=== PATIENT | male | born 1970 | race Caucasian/White ===

== ENCOUNTER 2019-07-21 19:17 | Emergency (ER) | payer SELFPAY ==
[~2019-07-21] VITALS: Ht 182.9 cm; Wt 87.6 kg
--- NOTE | 2019-07-21 19:32 | PHYS DOC ---
Adult General Chief Complaint Chief Complaint: OTHER COMPLAINTS.. "I think I am infected with worms.. I see them in my stools.. I even think they are going out of my skin.... My girl friend has them too.. she.... Went to [facility] and they just thought she was crazy.. "." HPI HPI Patient is a 49 year old male who presents with above hx and complaints worm's in his stool in lesions on his skin. Patient has been exposed to individuals that have been overseas. No recent travel. Patient has done a course of scabies treatment. Patient advised his girlfriend also has worms. No hx. of immunosuppression. Review of Systems Review of Systems Constitutional: Denies fever or chills [] Eyes: Denies change in visual acuity, redness, or eye pain [] HENT: Denies nasal congestion or sore throat [] Respiratory: Denies cough or shortness of breath [] Cardiovascular: No additional information not addressed in HPI [] GI: Denies abdominal pain, nausea, vomiting, bloody stools or diarrhea []. Patient has complaints of worms in his stool : Denies dysuria or hematuria [] Musculoskeletal: Denies back pain or joint pain [] Integument: Denies rash . Complaints of skin lesions Neurologic: Denies headache, focal weakness or sensory changes [] Endocrine: Denies polyuria or polydipsia [] All other systems were reviewed and found to be within normal limits, except as documented in this note. Family History Family History Noncontributory Current Medications Current Medications See nursing for home meds Allergies Allergies No known drug allergies Physical Exam Physical Exam Constitutional: Well developed, well nourished, no acute distress, non-toxic appearance. [] HENT: Normocephalic, atraumatic, bilateral external ears normal, oropharynx moist, no oral exudates, nose normal. [] Eyes: PERRLA, EOMI, conjunctiva normal, no discharge. [] Neck: Normal range of motion, no tenderness, supple, no stridor. [] Cardiovascular:Heart rate regular rhythm, no murmur [] Lungs & Thorax: Bilateral breath sounds equal apex with scattered wheezes on auscultation [] Abdomen: Bowel sounds normal, soft, no tenderness, no masses, no pulsatile masses. [] Skin: Warm, dry, no erythema, no rash. [] Back: No tenderness, no CVA tenderness. [] Extremities: No tenderness, no cyanosis, no clubbing, ROM intact, no edema. [] Neurologic: Alert and oriented X 3, normal motor function, normal sensory function, no focal deficits noted. [] Psychologic: Affect anxious, judgement normal, mood normal. [] EKG EKG [] Radiology/Procedures Radiology/Procedures [] Course & Med Decision Making Course & Med Decision Making Pertinent Labs and Imaging studies reviewed. (See chart for details) Patient to supply a stool sample. Patient follow-up primary care. Patient take albendazole 400 mg daily for 3 days. Patient follow-up primary care. Followup stool evaluations. Impression: 1. Hx. of Worms in stool [] Dragon Disclaimer Dragon Disclaimer This electronic medical record was generated, in whole or in part, using a voice recognition dictation system. Departure Departure: Disposition: 01 HOME/RESIDENCE PRIOR TO ADM Condition: STABLE Referrals: PCP,NO (PCP) Scripts Albendazole (ALBENZA) 200 Mg Tablet 400 MG PO DAILY for worms for 3 Days, #6 TAB Prov: PATRICIA LOO MD 07/21/19 Hossein Disclaimer This chart was dictated in whole or in part using Voice Recognition software in a busy, high-work load, and often noisy Emergency Department environment. It may contain unintended and wholly unrecognized errors or omissions. Dragon Disclaimer This chart was dictated in whole or in part using Voice Recognition software in a busy, high-work load, and often noisy Emergency Department environment. It may contain unintended and wholly unrecognized errors or omissions. Dragon Disclaimer This chart was dictated in whole or in part using Voice Recognition software in a busy, high-work load, and often noisy Emergency Department environment. It may contain unintended and wholly unrecognized errors or omissions. PATRICIA LOO MD Jul 21, 2019 19:32
[2019-07-21 19:41] VITALS: BP 127/96
[2019-07-21] MEDS ORDERED: ALBE200T2 PO (20:27)
== END 2019-07-21 20:30 | disposition home or self-care (01) ==
LOC: ER 19:17
DX: B82.0 Intestinal helminthiasis, unspecified (principal); L98.8 Other specified disorders of the skin and subcutaneous tissue
CPT/HCPCS: 87045; 87177; 99284

== ENCOUNTER 2020-05-31 23:33 | Emergency (ER) | payer OTHER ==
[~2020-05-31] VITALS: Ht 185.4 cm; Wt 89.7 kg
[~2020-05-31 23:33] MED LIST: ALBE200T2 PO
--- NOTE | 2020-06-01 00:09 | RAD ---
Three-view right hand series history: Possible infection and foreign body AP lateral oblique views 3 views right wrist: There is marginal spurring of the distal radial ulnar joint. There is mild marginal spurring of the first carpal metacarpal joint. The visualized osseous structures appear grossly intact. IMPRESSION: No acute findings. 3 views right hand: There is mild marginal spurring of the distal interphalangeal joints and the interphalangeal joint of the thumb. There is no radiopaque foreign body seen. There is soft tissue swelling of the thumb. IMPRESSION: 1. Mild degenerative changes consistent with osteoarthrosis. 2. No acute bony abnormality or radiopaque foreign body. Electronically signed by: Justin Terry III, MD (06/01/2020 12:06 AM) ENOC
[2020-06-01] MEDS ORDERED: VANCOMYCIN 1 GM in IV NORMAL SALINE 250ML 250 ML IV ONE (00:15)
[2020-06-01] MEDS ORDERED: PIPERACILLIN/TAZOBACTAM 3.375 GM VIAL IV ONE ×2 (00:20→00:32)
[2020-06-01] MEDS ORDERED: IV NORMAL SALINE 50ML 50 ML ONE ×2 (00:20→00:32)
--- NOTE | 2020-06-01 00:25 | PHYS DOC ---
Past History Past Medical History: No Pertinent History Past Surgical History: No Surgical History Alcohol Use: Occasionally Drug Use: Marijuana Adult General Chief Complaint Chief Complaint: HAND PROBLEM HPI HPI Patient is a 50-year-old male who presents for right thumb abnormality. 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 Reports picking up large heavy object the other day and having splinters embedded into flexor portion of his right thumb. He has had ongoing pain and increased swelling and irritation since onset. Nothing known makes better, movement and palpation make worse. Pain described as sharp and focal with mild radiation into hyperthenar eminence. Patient denies any fever or COVID-19 contacts but admits ongoing pain causing nausea, increased swelling of the thumb, and pain with extension of thumb. His tetanus is not up-to-date. He has no recent antibiotic use. Patient reports trying to pull out several embedded splinters with knife at home over the past 24 hours. Review of Systems Review of Systems Fourteen body systems of review of systems have been reviewed. See HPI for pertinent positives and negative responses, other gaviria all other systems are negative, non-pertinent or non-contributory Current Medications Current Medications Current Medications Medications (Trade) Dose Ordered Sig/Devendra Start Time Stop Time Status Last Admin Dose Admin Morphine Sulfate (Morphine 4mg Syringe) 4 mg 1X ONCE 06/01/20 00:30 06/01/20 00:31 Piperacillin Sod/ Tazobactam Sod 3.375 gm/Sodium Chloride 50 ml @ 100 mls/hr 1X ONCE 06/01/20 00:30 06/01/20 00:59 Vancomycin HCl 1 gm/Sodium Chloride 250 ml @ 250 mls/hr 1X ONCE 06/01/20 00:15 06/01/20 01:14 UNV Allergies Allergies Allergies Coded Allergies Type Severity Reaction Last Updated Verified No Known Drug Allergies 07/21/19 No Physical Exam Physical Exam Constitutional: Well developed, well nourished, moderate distress from pain, non-toxic appearance. HENT: Normocephalic, atraumatic, bilateral external ears normal, oropharynx moist, no oral exudates, nose normal. Eyes: PERRLA, EOMI, conjunctiva normal, no discharge. Neck: Normal range of motion, no tenderness, supple, no stridor. Cardiovascular: Heart rate regular, sinus rhythm, no murmurs rubs or gallops Lungs & Thorax: Bilateral breath sounds clear to auscultation Abdomen: Bowel sounds normal, soft, no tenderness, no masses, no pulsatile masses. Nonsurgical abdomen, no peritoneal signs Skin: Warm, dry, no erythema, no rash. Back: No tenderness, no CVA tenderness. Extremities: No cyanosis, no clubbing. Medial radial and ulnar nerves intact in bilateral upper extremities, pulses 2+ in bilateral upper extremities, obvious abnormality to right thumb which is held in flexion, fusiform swelling present with tenderness along tendon sheath, right thumb with increased circumference versus contralateral side, patient has pain with passive movement of flexion and extension of right thumb, no obvious streaking up right upper extremity from inoculation site on ventral portion of thumb flexor sheath Neurologic: Alert and oriented X 3, grossly normal motor & sensory function, no focal deficits noted. Psychologic: Affect normal, judgement normal, anxious mood Current Patient Data Vital Signs Vital Signs Date Time Temp Pulse Resp B/P (MAP) Pulse Ox O2 Delivery O2 Flow Rate FiO2 06/01/20 00:30 97 Room Air EKG EKG [] Radiology/Procedures Radiology/Procedures PROCEDURE: WRIST 3V RIGHT Three-view right hand series history: Possible infection and foreign body AP lateral oblique views 3 views right wrist: There is marginal spurring of the distal radial ulnar joint. There is mild marginal spurring of the first carpal metacarpal joint. The visualized osseous structures appear grossly intact. IMPRESSION: No acute findings. 3 views right hand: There is mild marginal spurring of the distal interphalangeal joints and the interphalangeal joint of the thumb. There is no radiopaque foreign body seen. There is soft tissue swelling of the thumb. IMPRESSION: 1. Mild degenerative changes consistent with osteoarthrosis. 2. No acute bony abnormality or radiopaque foreign body. Electronically signed by: Justin Terry III, MD (06/01/2020 12:06 AM) UI-EURI Heart Score Risk Factors: Risk Factors: DM, Current or recent (<one month) smoker, HTN, HLP, family history of CAD, obesity. Risk Scores: Risk Factors: DM, Current or recent (<one month) smoker, HTN, HLP, family history of CAD, obesity. Course & Med Decision Making Course & Med Decision Making Airway patent, breathing unlabored, vitals grossly unremarkable Comprehensive history and physical examination performed and concerning for potential flexor tenosynovitis of right thumb given Kanavel signs Radiographs of right upper extremity negative for any radiopaque retained fore ign body I immediately called [facility] to discuss case with on-call hand surgeon, Dr. Jorgensen, who ultimately agreed for transport to [facility] ER for further evaluation to ultimately rule in/out flexor tenosynovitis of right thumb I discussed proposed plan of care with patient who is amenable to transfer for evaluation by specialist and higher acuity of care Prior to ER departure, IV access was obtained, pending CBC, CMP, CRP, ESR at this time. Patient received tetanus prior to departure, 4 mg IV morphine and 1 g vancomycin and 3.75 g Zosyn administered Patient adequately stabilized, all questions and concerns addressed prior to ER departure in stable condition Dragon Disclaimer Dragon Disclaimer This electronic medical record was generated, in whole or in part, using a voice recognition dictation system. Departure Departure: Impression: Primary Impression: Flexor tenosynovitis of thumb Disposition: 02 DC/TRF OTHER SHORT TERM HOS ([facility] ER) Admitting Physician: Other (Dr. Jorgensen) Condition: STABLE Referrals: PCP,NO (PCP) RANJITH DHILLON DO Jun 01, 2020 00:25
[2020-06-01] MEDS ORDERED: MORPHINE SULFATE 4 MG/ML DISP.SYRIN. IV ONE (00:30)
[2020-06-01] MEDS ORDERED: PIPERACILLIN/TAZOBACTAM 3.375 GM in IV NORMAL SALINE 50ML 50 ML IV ONE (00:30)
[2020-06-01] MEDS ORDERED: VANCOMYCIN PER PHARMACY MC PRN (00:30)
[2020-06-01 00:52] LABS: CALCIUM 8.5 mg/dL (8.5-10.1); GFR 79.4; POTASSIUM 3.7 mmol/L (3.5-5.1)
[2020-06-01 00:58] LABS: ALBUMIN 3.4 g/dL (3.4-5.0); ALBUMIN/GLOBULIN RATIO 0.9 (1.0-1.7); C REACTIVE PROTEIN 44.7 mg/L (0-3.3); TOTAL BILIRUBIN 0.2 mg/dL (0.2-1.0); TOTAL PROTEIN 7.1 g/dL (6.4-8.2)
[2020-06-01 01:10] LABS: BASO % 1 % (0-3); EOS # 0.1 x10^3/uL (0.0-0.7); EOS % 1 % (0-3); HEMOGLOBIN 13.6 g/dL (13.0-17.5); LYMPH # 1.2 x10^3/uL (1.0-4.8); LYMPH % 12 % (24-48); MEAN CORPUSCULAR HEMOGLOBIN 30 pg (25-35); MEAN CORPUSCULAR HGB CONC 33 g/dL (31-37); MEAN CORPUSCULAR VOLUME 92 fL (79-100); MONO # 1.1 x10^3/uL (0.0-1.1); MONO % 11 % (0-9); NEUT # 8.1 x10^3uL (1.8-7.7); NEUT % 77 % (31-73); PLATELET COUNT 226 x10^3/uL (140-400); RED BLOOD COUNT 4.48 x10^6/uL (4.30-5.70); RED CELL DISTRIBUTION WIDTH 13.5 % (11.5-14.5); WHITE BLOOD COUNT 10.6 x10^3/uL (4.0-11.0)
[2020-06-01] MEDS ORDERED: VANCOMYCIN 1 GM VIAL. ONE (01:11)
[2020-06-01] MEDS ORDERED: IV NORMAL SALINE 500ML 500 ML ONE (01:11)
[2020-06-01] MEDS ORDERED: VANCOMYCIN 2 GM in IV NORMAL SALINE 500ML 500 ML IV ONE (01:30)
[2020-06-01] MEDS ORDERED: HYDROmorphone PF 1 MG/ML DISP.SYRIN IVP ONE (01:30)
[2020-06-01] MEDS ORDERED: DIPH,PERTUSS(ACELL),TET VAC/PF 0.5 ML SYRINGE. VAX IM ONE (01:30)
[2020-06-01 01:41] VITALS: BP 143/88
== END 2020-06-01 01:37 | disposition short-term general hospital (02) ==
LOC: ER 23:33
DX: M65.841 Other synovitis and tenosynovitis, right hand (principal); R11.0 Nausea
CPT/HCPCS: 36415; 73110; 73130; 80053; 85025; 86140; 90471; 90715; 96365; 96368; 96375; 99285; J1170; J2270; J2543; J3370; J7040

== ENCOUNTER 2020-10-09 11:56 | Emergency (ER) | payer BC, OTHER ==
[~2020-10-09] VITALS: Ht 185.4 cm; Wt 83.3 kg
[~2020-10-09 11:56] MED LIST changes: +ALBE200T13 PO; -ALBE200T2 PO
[2020-10-09 12:00] VITALS: BP 127/78
--- NOTE | 2020-10-09 12:32 | PHYS DOC ---
Past History Past Medical History: No Pertinent History Past Surgical History: No Surgical History Alcohol Use: Occasionally Drug Use: Marijuana General Adult EDM: Chief Complaint: FOREIGN BODY HPI: HPI: Patient is a 50-year-old male who presents with [employer] for a taser sheba removal. Sheba was still intact on left side of abdomen. Patient is not reporting any pain or complaints. Patient is refusing to speak or answer any questions regarding health history or incident leading up to being tased. Patient is alert. PD is at bedside. Review of Systems: Review of Systems: Constitutional: Denies fever or chills Eyes: Denies change in visual acuity HENT: Denies nasal congestion or sore throat Respiratory: Denies cough or shortness of breath Cardiovascular: Denies chest pain or edema GI: Denies abdominal pain, nausea, vomiting, bloody stools or diarrhea : Denies dysuria Musculoskeletal: Denies back pain or joint pain Integument: Sheba from taser still intact, left side of abdomen. Small, red wound mid abdomen, previous taser sheba removed Neurologic: Denies headache, focal weakness or sensory changes Endocrine: Denies polyuria or polydipsia Lymphatic: Denies swollen glands Psychiatric: Denies depression or anxiety Allergies: Allergies: Allergies Coded Allergies Type Severity Reaction Last Updated Verified No Known Drug Allergies 07/21/19 No Physical Exam: PE: Constitutional: Well developed, well nourished, no acute distress, non-toxic appearance. [] HENT: Normocephalic, atraumatic, bilateral external ears normal, oropharynx moist, no oral exudates, nose normal. [] Eyes: PERRLA, EOMI, conjunctiva normal, no discharge. [] Neck: Normal range of motion, no tenderness, supple, no stridor. [] Cardiovascular:Heart rate regular rhythm, no murmur [] Lungs & Thorax: Bilateral breath sounds clear to auscultation [] Abdomen: Bowel sounds normal, soft, no tenderness Skin: Warm, dry, no erythema, no rash. [] Back: No tenderness, no CVA tenderness. [] Extremities: No tenderness, no cyanosis, no clubbing, ROM intact, no edema. [] Neurologic: Alert and oriented X 3, normal motor function, normal sensory function, no focal deficits noted. [] Psychologic: Affect normal, judgement normal, mood normal. [] EKG: EKG: [] Radiology/Procedures: Radiology/Procedures: [] Heart Score: C/O Chest Pain: No Risk Factors: Risk Factors: DM, Current or recent (<one month) smoker, HTN, HLP, family history of CAD, obesity. Risk Scores: Score 0 - 3: 2.5% MACE over next 6 weeks - Discharge Home Score 4 - 6: 20.3% MACE over next 6 weeks - Admit for Clinical Observation Score 7 - 10: 72.7% MACE over next 6 weeks - Early Invasive Strategies Course & Med Decision Making: Course & Med Decision Making Pertinent Labs and Imaging studies reviewed. (See chart for details) []Patient is a 50-year-old male who presents with [place] [employer] for a taser sheba removal. Sheba was still intact on left side of abdomen. Patient tolerated removal, bleeding is controlled. Dart was removed at 1230. Wound is cleansed with alcohol swab and covered with dressing. Patient is refusing to speak or answer any questions regarding health history or incident leading up to being tased. Patient tetanus status unknown. Tetanus administered prior to discharge. PD is at bedside. Patient is not reporting any other complaints. Patient is released to PD. Patient is to seek medical attention if any signs of infection such as fever, increasing pain, redness, purulent discharge develops around the wound. Patient is hemodynamically stable and alert. Kimeltu Disclaimer: Kimeltu Disclaimer: This electronic medical record was generated, in whole or in part, using a voice recognition dictation system. Departure Departure: Impression: Primary Impression: Taser injury Qualified Codes: T75.4XXA - Electrocution, initial encounter; W86.8XXA - Exposure to other electric current, initial encounter Disposition: 01 DC HOME SELF CARE/HOMELESS Condition: STABLE Referrals: PCP,NO (PCP) Patient Instructions: Puncture Wound, [id number] Additional Instructions: You were seen in the emergency room to have a taser removed from the left side of your abdomen. Please watch for signs of infection. Contact your PCP or return to emergency room if any signs of infection such as fever, increasing pain, redness, purulent discharge develops around the wound. Your tetanus was updated while in the emergency room. EMERGENCY DEPARTMENT GENERAL DISCHARGE INSTRUCTIONS Thank you for coming to [facility] (ED) today and trusting us with you care. We trust that you had a positivie experience in our Emergency Department. If you wish to speak to the department management, you may call the director at [phone]. YOUR FOLLOW UP INSTRUCTIONS ARE FOLLOWS: 1. Do you have a private Doctor? If you do not have a private doctor, please ask for a resource list of physicians or clinics that may be able to assist you with follow up care. 2. The Emergency Physician has interpreted your x-rays. The X-Ray specialist will also review them. If there is a change in the findings, you will be notified in 48 hours when at all possible. 3. A lab test or culture has been done, your results will be reviewed and you will be notified if you need a change in treatment. ADDITIONAL INSTRUCTIONS AND INFORMATION: 1. Your care today has been supervised by a physician who is specially trained in emergency care. Many problems require more than one evaluation for a complete diagnosis and treatment. We recommend that you schedule your follow up appointment as recommended to ensure complete treatment of you illness or injury. If you are unable to obtain follow up care and continue to have a problem, or if your condition worsens, we recommend that you return to the ED. 2. We are not able to safely determine your condition over the phone nor are we able to give sound medical advice over the phone. For these safety reasons, if you call for medical advice we will ask you to come to the ED for further evaluation. 3. If you have any questions regarding these discharge instructions please call the ED at [phone]. SAFETY INFORMATION: In the interest of safety, wellness, and injury prevention; we encourage you to wear your sealbelt, if you smoke; quite smoking, and we encourage family to use a protective helmet for bicycling and other sporting events that present an increased risk for head injury. IF YOUR SYMPTOMS WORSEN OR NEW SYMPTOMS DEVELOP, OR YOU HAVE CONCERNS ABOUT YOUR CONDITION; OR IF YOUR CONDITION WORSENS WHILE YOU ARE WAITING FOR YOUR FOLLOW UP APPOINTMENT; EITHER CONTACT YOUR PRIMARY CARE DOCTOR, THE PHYSICIAN WHOSE NAME AND NUMBER YOU WERE GIVEN, OR RETURN TO THE ED IMMEDIATELY. KARISSA CONDON APRN Oct 09, 2020 12:32
[2020-10-09] MEDS ORDERED: DIPH,PERTUSS(ACELL),TET VAC/PF 0.5 ML SYRINGE. VAX IM ONE (12:45)
== END 2020-10-09 13:13 | disposition home or self-care (01) ==
LOC: ER 11:56
DX: T75.4XXA Electrocution, initial encounter (principal); S30.851A Superficial foreign body of abdominal wall, initial encounter; W86.8XXA Exposure to other electric current, initial encounter; Y93.9 Activity, unspecified; Y92.89 Other specified places as the place of occurrence of the external cause; Y99.8 Other external cause status
CPT/HCPCS: 90471; 90715; 99283; 99284

== ENCOUNTER → 2021-10-28 | Outpatient (CLI) | payer OTHER ==
--- NOTE | 2021-10-28 15:54 | RAD ---
EXAM: XR CHEST 2V 10/28/2021 2:09 PM CLINICAL INDICATION: Shortness of air, fatigue COMPARISON: None TECHNIQUE: PA and lateral views of the chest FINDINGS: The heart is normal in size. Lungs are well-expanded. No consolidation, pleural effusion, or pneumothorax. No acute osseous abnormality. IMPRESSION: No acute cardiopulmonary abnormality. Electronically signed by: Sue Austin MD (10/28/2021 3:52 PM) [id number]
== END ==
LOC: RAD 13:51
PROVIDERS: ATTEND Nurse Practitioner Primary Care
DX: R06.02 Shortness of breath (principal)
CPT/HCPCS: 71046